=== PATIENT | female | born 1985 | race Caucasian/White ===

== ENCOUNTER 2018-09-14 21:49 | Emergency (ER) | payer SELFPAY ==
[~2018-09-14] VITALS: Ht 154.9 cm; Wt 111.1 kg
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
[2018-09-15] MEDS ORDERED: IBUPROFEN 400 MG TABLET ONE (00:29)
[2018-09-15] MEDS ORDERED: HYDROCODONE/APAP 10/325MG 1 EA TABLET ONE (00:29)
[2018-09-15] MEDS ORDERED: HYDROCODONE/APAP 10/325MG 1 EA TABLET PO ONE (00:30)
[2018-09-15] MEDS ORDERED: IBUPROFEN 400 MG TABLET PO ONE (00:30)
--- NOTE | 2018-09-15 00:50 | NUR ---
Patient discharged to home in stable condition. Written and verbal after care instructions given. Patient verbalizes understanding of instruction. Patient left on foot with steady gait. No s/s of acute distress or sob noted. Pt left with SO at side who will be taking pt back home. Instructed pt not to drive. NO iv access on pt. All ordered meds givent to pt.
[2018-09-15 01:13] VITALS: BP 138/80
== END 2018-09-15 01:00 | disposition home or self-care (01) ==
LOC: ER 21:55
DX: T59.4X1A Toxic effect of chlorine gas, accidental (unintentional), initial encounter (principal); L60.0 Ingrowing nail; F31.9 Bipolar disorder, unspecified; F90.9 Attention-deficit hyperactivity disorder, unspecified type; Y92.89 Other specified places as the place of occurrence of the external cause

== ENCOUNTER 2019-01-14 18:00 | Emergency (ER) | payer MEDICAID ==
[~2019-01-14] VITALS: Ht 154.9 cm; Wt 111.1 kg
--- NOTE | 2019-01-14 18:00 | NUR ---
CAME IN FOR R BIG TOE SWELLING AND TRAUMA.TO ER BED 11, HOOKED TO MONITOR, PROVIDED W WARM BLANKET, AWAITING MD CRANDALL.
[2019-01-14] MEDS ORDERED: TDAP [DIPH/PERTUSSIS/TET] 0.5 ML VIAL IM ONE ×2 (18:48→19:00)
[2019-01-14] MEDS ORDERED: LIDOCAINE HCL/PF 1% 30 ML SDV ONE (18:48)
--- NOTE | 2019-01-14 18:50 | NUR ---
LUDY BENITES AT BEDSIDE
--- NOTE | 2019-01-14 19:27 | NUR ---
Patient discharged to home in stable condition. Written and verbal after care instructions given. Patient verbalizes understanding of instruction.
[2019-01-14] MEDS ORDERED: LIDOCAINE HCL/PF 1% 30 ML VIAL TP ONE (19:30)
[2019-01-14 19:31] VITALS: BP 147/75
== END 2019-01-14 19:32 | disposition home or self-care (01) ==
LOC: ER 18:07
DX: L60.0 Ingrowing nail (principal); L03.031 Cellulitis of right toe; F41.9 Anxiety disorder, unspecified; F31.9 Bipolar disorder, unspecified; F90.9 Attention-deficit hyperactivity disorder, unspecified type
CPT/HCPCS: 11730; 90471; 90715; 99283; A6403; J3490 ×2

== ENCOUNTER 2019-02-21 19:24 | Emergency (ER) | payer MEDICAID ==
[~2019-02-21] VITALS: Ht 154.9 cm; Wt 111.1 kg
[2019-02-21 20:03] VITALS: BP 175/92
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
--- NOTE | 2019-02-21 20:37 | NUR ---
URINE SPECIMEN AND SENT TO LAB.
--- NOTE | 2019-02-21 20:48 | NUR ---
KAMARI BOSTON AT BEDSIDE FOR EVAL.
--- NOTE | 2019-02-21 21:05 | NUR ---
Patient discharged to home in stable condition. Written and verbal after care instructions given. Patient verbalizes understanding of instruction.
== END 2019-02-21 21:08 | disposition home or self-care (01) ==
LOC: ER 19:29
DX: R51 Headache (principal); M54.2 Cervicalgia; F41.9 Anxiety disorder, unspecified; F31.9 Bipolar disorder, unspecified; F90.9 Attention-deficit hyperactivity disorder, unspecified type; V49.49XA Driver injured in collision with other motor vehicles in traffic accident, initial encounter; Y93.89 Activity, other specified; Y92.413 State road as the place of occurrence of the external cause; Y99.8 Other external cause status

== ENCOUNTER 2020-04-20 23:02 | Emergency (ER) | payer MEDICAID ==
[~2020-04-20] VITALS: Ht 154.9 cm; Wt 104.3 kg
--- NOTE | 2020-04-20 23:05 | NUR ---
C/O HEADACHE WITH SINUS PRESSURE & NUMBNESS, NECK PAIN X2 WEEKS, PT TO BED 1, AWAKE, ALERT, -SOB, NAD NOTED, VSS, PENDING ER PROVIDER EVAL
[2020-04-20] MEDS ORDERED: METOCLOPRAMIDE HCL 10 MG/2 ML VIAL IV ONE (23:30)
[2020-04-20] MEDS ORDERED: IV NS 0.9% 1,000 ML BAG IV ONE (23:30)
[2020-04-20] MEDS ORDERED: SUMATRIPTAN SUCCINATE 6 MG/0.5 ML VIAL SQ ONE ×2 (23:30→23:31)
[2020-04-20] MEDS ORDERED: METOCLOPRAMIDE HCL 10 MG/2 ML VIAL ONE (23:32)
--- NOTE | 2020-04-21 00:20 | NUR ---
Patient discharged to home in stable condition. Written and verbal after care instructions given. Patient verbalizes understanding of instruction. IV removed. Catheter intact and site benign. Pressure and 4x4 applied to site. No bleeding noted.
[2020-04-21 00:34] VITALS: BP 139/90
== END 2020-04-21 00:34 | disposition home or self-care (01) ==
LOC: ER 23:02
DX: R51 Headache (principal); F31.9 Bipolar disorder, unspecified; F41.9 Anxiety disorder, unspecified; F90.9 Attention-deficit hyperactivity disorder, unspecified type
CPT/HCPCS: 70450; 96361; 96372; 96374; 99285; J2765; J3030; J7030